=== PATIENT | female | born 1950 ===

== ENCOUNTER → 2016-09-29 | Day surgery (SDC) | payer MEDICARE, OTHER ==
[~2016-09-29] VITALS: Ht 162.6 cm; Wt 63.5 kg
[~2016-09-29] MED LIST: HAIR, SKIN & N1 EACH PO; KEFLEX500 MG PO; L-LYSINE500 M1 PO; LOTRISONE15 GM TOP; MEVACOR20 MG PO; MOBIC7.5 MG PO; NORCO 5-325 TA1 EACH PO; ULTRAM50 MG PO; ZINC50 M1 PO
--- NOTE | ~2016-09-29 | OR ---
PATIENT'S NAME: FELIPA CHAU [facility] AGE: 66 Y [address] ROOM: [place] [id number] LOCATION: [facility] ADMIT DATE: 09/29/2016 OR/Procedure Report DISCHARGE DATE: FAMILY PHYSICIAN: Colby Chávez MD ATTENDING PHYSICIAN: Ramakrishna Reis SURGEON: Ramakrishna Reis DPM CIVIL DRAFTING TECHNICIAN: DATE OF PROCEDURE: 09/29/2016 PREOPERATIVE DIAGNOSES: 1. Hallux valgus deformity with bunion and hallux limitus, left foot. 2. Recurrent hammertoe deformity, second toe, left foot. POSTOPERATIVE DIAGNOSES: 1. Hallux valgus deformity with bunion and hallux limitus, left foot. 2. Recurrent hammertoe deformity, second toe, left foot. PROCEDURES PERFORMED: 1. Kin bunionectomy with internal screw fixation (Synthes 2.7 x 16 mm x1) left foot with subchondral drilling first metatarsophalangeal joint, left. 2. Revisional arthrodesis proximal interphalangeal joint, second toe, left foot with insertion of HammerFiX implant (size medium) left foot. OPERATIVE SUMMARY: On 09/29/2016, this 66-year-old female was transported to the operating room after local anesthesia was achieved under ankle block in the preoperative holding area. Once in the operating room, she was placed on the operating room table in supine position. Next, the left foot was prepped and draped in usual sterile fashion. Next, a pneumatic ankle tourniquet was applied to well-padded site just proximal to malleoli and roughly inflated to 200 mmHg following exsanguination by Esmarch bandage. Next, the left lower extremity was delivered back to the operating room table, sterile draping was completed, and the following procedure was performed. Kin bunionectomy with internal screw fixation and subchondral drilling first metatarsophalangeal joint, left foot. At this time, the attention was directed towards the patient's left foot, where she was noted have moderate hallux valgus with associated bunion deformity as well as dorsal bunion deformity and limitation of joint range of motion. Preoperative X-ray evaluation revealed moderate bunion deformity with some dorsal exostosis, that could be corrected with osteotomy, so at this time, approximately 5 cm dorsal linear skin incision created in the dorsal medial aspect of the first metatarsophalangeal joint. The incision was deepened down through the subcutaneous tissues. All coursing venous tributaries were identified, isolated, clamped, cut, electrocoagulated, and PATIENT'S NAME: FELIPA CHAU [facility] AGE: 66 Y [address] ROOM: [place] [address] LOCATION: [facility] [place] ADMIT DATE: 09/29/2016 OR/Procedure Report DISCHARGE DATE: FAMILY PHYSICIAN: Colby Chávez MD ATTENDING PHYSICIAN: Ramakrishna Reis. All vital neurovascular structure were gently retracted in the medial and lateral fashion. Dissection was carried down to the level of the capsular and periosteal structures of the first metatarsophalangeal joint. Next, linear capsule and periosteal incision were created at the confines of the original skin incision. Next, the tissue was dissected in a medial and lateral fashion and debriding into via the hypertrophic dorsal and medial laminas of the first metatarsal head as well as corresponding base of the phalanx to the hallux. Once this had been dissected free, the articular surfaces were examined and she was noted to have loss of approximately the central 35% of the articular cartilage. Next, attention was directed towards the lateral aspect of the joint where a comprehensive soft tissue release was performed. This including incising the extensor hallucis brevis tendon, which we immediately transposed medially at the time of closure to change its vector pole. Once this had been done, there was noted to be good reduction of the valgus deformity. Next, attention was directed back medially. Next, utilizing the sagittal saw, the hypertrophic dorsal, medial lamina of the first metatarsal head was osteotomized from dorsal to plantar and distal to proximal with through and through fashion, free from surrounding soft tissue attachments and extricated in toto from the surgical site. Similarly, the dorsal aspect of the metatarsal head hypotrophic bone was also osteotomized and removed from the surgical site. A rongeur was used on the base of the phalanx as that was hypertrophic bone to the dorsal, medial, and lateral aspects of that bone, that was noted to cup over the metatarsal head. Upon removal, there was noted to be much better movement of the dorsiflexion motion to the joint. Being satisfied with this, attention was then directed medially. Next, utilizing the sagittal saw, a chevron type osteotomy was created from the medial to lateral in a through and through fashion. Once this had been completed, the capital fragment was transposed laterally and this was somewhat plantarflexed with the angle of the cut to correct the deformity. This was then temporarily fixated utilizing two 0.062 K-wires. Next, a Synthes screw was placed obliquely across the osteotomy site from a distal, dorsal, and plantar proximal direction, utilizing standard AO technique. A single 2.7 x 16 mm screw was placed and it was noted to be good reduction and deformity as well as a good fixation which was confirmed utilizing Intraoperative C-arm. Being satisfied with the correction, the attention was then directed back medially where the residual cortical spike of the bone was removed, utilizing the sagittal saw. The dorsal and medial surfaces of both the phalanx and the head of the metatarsal was smoothed utilizing a 4-0 oval bur. Next, utilizing again a 0.62 K-wire, the vast articular surface to the central aspect of the joint was drilled to good bleeding bone to help facilitate peeling with hyaline cartilage. Again, prior to closure, there was noted to be good reduction of the deformity. Being satisfied with correction, the attention was then directed towards closure. PATIENT'S NAME: FELIPA CHAU [facility] AGE: 66 Y [address] ROOM: [place], [place] [address] LOCATION: [facility] [place] ADMIT DATE: 09/29/2016 OR/Procedure Report DISCHARGE DATE: FAMILY PHYSICIAN: Colby Chávez MD ATTENDING PHYSICIAN: Ramakrishna Reis The wound was flushed with copious amounts of sterile saline. Next, a capsular tissue was then reapproximated utilizing 3-0 Vicryl in a running suture. A 4-0 Vicryl retention stitch was placed to the subcutaneous tissues. The skin edges were reapproximated utilizing 5-0 Vicryl in a running subcuticular fashion. Being satisfied with this, attention was then directed towards the second toe where the following procedure was performed; revisional arthrodesis proximal interphalangeal joint, second toe, left foot. At this time, attention was directed towards the second toe, where she was noted to have deviation of the second toe of distal to the proximal interphalangeal joint, where she has had prior hammertoe correction. She also had some tightness and contracture along the scar at the metatarsophalangeal joint level. So, utilizing the previous surgical scar, approximately 3.5 cm layer of skin incision was created directly over the dorsal aspect of the second toe, beginning at the level of the metatarsophalangeal joint and ending at the just distal to where it had been the proximal interphalangeal joint at the apex of the deformity. This incision was deepened down to subcutaneous tissue, so that we expected there was some hypertrophic tissue and scarring related to the previous surgery. At the apex of the deformity, the saw was used to go down to the previously placed hammerlock metallic implant. Once down to this level, a millimeter or 2 wedge of bone was removed to give access to the implant. Once it was identified, a hemostat was used to remove the implant. The edges were then reapproximated, and with the small cut made, there was noted to be good reduction of the deformity distally, so this was then fixated utilizing a size medium HammerFiX implant. Utilizing a K-wire, the surfaces were prepped first proximally with drilling and then distally with the tap. The implant placed and there was noted to be good reduction of the deformity, which was again confirmed utilizing intraoperative C-arm. Being satisfied with the correction of the deformity at the proximal phalangeal joint, there was noted to some contracture at the metatarsophalangeal joint, so the extensor tissues were released dorsally at the level of the metatarsophalangeal joint and there was good reduction of the deformity. Being satisfied with the correction, the attention was then directed towards closure. The wound was flushed with the copious amounts of sterile saline. The capsular tissues were reapproximated using 4-0 Vicryl in a simple interrupted fashion. The skin edges were then reapproximated utilizing 4-0 Ethilon in a running baseball type suture. Being satisfied with this, attention was then directed towards bandaging. Each incision was then filled with 0.5 mL of sterile dexamethasone phosphate. Next, a dressing consisting of Adaptic, sterile 4 x 4, Kerlix, Pratibha, and Coban was applied in a mild compressive and corrective fashion to the patient's left foot. The previously applied pneumatic ankle tourniquet was wrapped and deflated, and spontaneous capillary refill time noted in digits 1 PATIENT'S NAME: FELIPA CHAU [facility] AGE: 66 Y [address] ROOM: [place] [id number] LOCATION: [facility] [place] ADMIT DATE: 09/29/2016 OR/Procedure Report DISCHARGE DATE: FAMILY PHYSICIAN: Colby Chávez MD ATTENDING PHYSICIAN: Ramakrishna Reis through 5 of the patient's left foot. The patient tolerated the above procedures well and left the operating room in good condition with vital signs stable. She was returned to holding area for further monitoring prior to discharge. RAMAKRISHNA REIS DPM PDM/modl /[id number] d: t: 09/29/16 2343, OPERATIVE SUMMARY
== END ==
LOC: GPOC 09-28 17:00 → GSDC 07:00
PROC: 0QBP0ZZ Excision of Left Metatarsal, Open Approach (ICD-10-PCS; principal; 2016-09-29)
PROC: 0QBR0ZZ Excision of Left Toe Phalanx, Open Approach (ICD-10-PCS; 2016-09-29)
PROC: 0SGQ04Z Fusion of Left Toe Phalangeal Joint with Internal Fixation Device, Open Approach (ICD-10-PCS; 2016-09-29)
DX: M20.12 Hallux valgus (acquired), left foot (principal); M21.612 Bunion of left foot; M20.42 Other hammer toe(s) (acquired), left foot; Z88.0 Allergy status to penicillin; Z79.2 Long term (current) use of antibiotics; Z79.899 Other long term (current) drug therapy
CPT/HCPCS: C1776; J1100; J2001; J7030

== ENCOUNTER → 2016-10-26 | Outpatient (CLI) | payer MEDICARE, OTHER | END | disposition disaster alternative care site (69) | LOC: LKCL 13:51 | DX: Z01.419 Encounter for gynecological examination (general) (routine) without abnormal findings (principal); Z12.4 Encounter for screening for malignant neoplasm of cervix | CPT/HCPCS: G0145 ==